=== PATIENT | female | born 1990 | race Caucasian/White ===

== ENCOUNTER 2018-09-07 23:36 | Emergency (ER) | payer MEDICAID ==
[~2018-09-07] VITALS: Ht 177.8 cm; Wt 111.1 kg
[2018-09-08 00:17] VITALS: BP 131/80
== END 2018-09-08 04:14 | disposition left against medical advice (07) ==
LOC: ER 23:41
DX: R21 Rash and other nonspecific skin eruption (principal); Z53.21 Procedure and treatment not carried out due to patient leaving prior to being seen by health care provider

== ENCOUNTER 2020-10-14 10:52 | Emergency (ER) | payer MEDICAID ==
[~2020-10-14] VITALS: Ht 172.7 cm; Wt 72.6 kg
[2020-10-14] MEDS ORDERED: LIDOCAINE 1% HCL (LOCAL ANESTH.) INJ 20ML MDV IJ ONE (11:15)
[2020-10-14] MEDS ORDERED: TETANUS-DIPTH-ACEL PERTUSSIS 0.5ML SYR Tdap IM ONE (11:30)
[2020-10-14 11:31] VITALS: BP 123/74
== END 2020-10-14 12:01 | disposition home or self-care (01) ==
LOC: ER 10:52 → EEVIPCON 10:52 → ER 12:00
DX: S71.112A Laceration without foreign body, left thigh, initial encounter (principal); W26.8XXA Contact with other sharp object(s), not elsewhere classified, initial encounter; Y93.89 Activity, other specified; Y92.89 Other specified places as the place of occurrence of the external cause; Y99.8 Other external cause status
CPT/HCPCS: 12001; 90471; 90715